=== PATIENT | female | born 1980 | race Two or more races ===

== ENCOUNTER 2017-05-26 18:15 | Observation (INO) | payer MEDICAID | END 2017-05-26 19:47 | disposition home or self-care (01) | DRG 563 | LOC: LDRP 18:15 | PROVIDERS: ADMIT Specialist; ATTEND Specialist | DX: O60.03 Preterm labor without delivery, third trimester (principal); Z3A.31 31 weeks gestation of pregnancy | CPT/HCPCS: 59025; 76815; 81002; G0378 ==

== ENCOUNTER 2017-05-28 16:10 | Observation (INO) | payer MEDICAID | END 2017-05-28 18:15 | disposition home or self-care (01) | DRG 563 | LOC: LDRP 16:10 | PROVIDERS: ADMIT Specialist; ATTEND Specialist | DX: O60.03 Preterm labor without delivery, third trimester (principal); Z3A.32 32 weeks gestation of pregnancy | CPT/HCPCS: 59025; 76818; 81002; G0378 ==

== ENCOUNTER 2017-06-12 01:04 | Observation (INO) | payer MEDICAID ==
[~2017-06-12] VITALS: Ht 165.1 cm; Wt 116.6 kg
[~2017-06-12 01:04] MED LIST: PREN-153 OR
[2017-06-12] MEDS ORDERED: TERBUTALINE SULFATE 1 MG/ML 1ML VIAL SC ONE (17:35)
[2017-06-12] MEDS ORDERED: LACTATED RINGER'S 1,000 ML IV ONE (17:45)
[2017-06-12] MEDS ORDERED: TERBUTALINE SULFATE 1 MG/ML 1ML VIAL SC SCH (18:00)
[2017-06-12 19:01] LABS: Basophils # (auto) 0 uL; Basophils % (auto) 0.4 % (0.0-2.0); CONDITION Y; Eosinophils # (auto) 0.1 uL; Eosinophils % (auto) 0.7 % (0.0-7.0); Hematocrit 40.5 % (36.0-46.0); Hemoglobin 13.8 g/dL (12.2-16.2); Lymphocytes # (auto) 2.7 uL; Lymphocytes % (auto) 27.5 % (10.0-50.0); Mean Corpuscular Hemoglobin 30.6 pg (28.0-32.0); Mean Corpuscular Hgb Conc. 34.1 g/dL (32.0-36.0); Mean Corpuscular Volume 89.7 fL (80.0-100.0); Mean Platelet Volume 11.7 fL (7.4-10.4); Monocytes # (auto) 0.7 uL; Monocytes % (auto) 7.4 % (0.0-12.0); Neutrophils # (auto) 6.3 uL; Platelet Count (auto) 206 10^3/uL (140-450); Red Cell Distribution Width 15.2 % (11.6-16.0); SUSPECT SEE PRINTOUT; White Blood Cell 9.8 10^3/uL (4.4-10.8)
[2017-06-12 19:09] LABS: Urine Bilirubin Negative (Negative); Urine Blood Negative /uL (Negative); Urine Color Yellow (Yellow); Urine Glucose Normal (Normal); Urine Ketone Negative (Negative); Urine Mucus FEW (None Seen); Urine Nitrite Negative (Negative); Urine RBC 1 /hpf (0 - 4); Urine Squamous Epithelial Cell FEW /hpf (<5); Urine Urobilinogen Normal (Negative)
[2017-06-12 19:14] LABS: INR 0.87 (0.9-1.15); Prothrombin Time 9.5 sec (9.37-12.3)
[2017-06-12 19:21] LABS: Albumin 2.7 g/dL (3.4-5.0); BUN/Creatinine Ratio 16.9; Bilirubin, Total 0.2 mg/dL (0.2-1.0); Calcium 9.1 mg/dL (8.5-10.1); Potassium 3.9 mmol/L (3.5-5.1); Total Protein 6.2 g/dL (6.4-8.2); Uric Acid 7.1 mg/dL (2.6-6.0)
== END 2017-06-12 20:13 | disposition home or self-care (01) | DRG 566 ==
LOC: LDRP 01:04
PROVIDERS: ADMIT Specialist; ATTEND Specialist
DX: O13.3 Gestational [pregnancy-induced] hypertension without significant proteinuria, third trimester (principal); O14.93 Unspecified pre-eclampsia, third trimester; Z3A.34 34 weeks gestation of pregnancy
CPT/HCPCS: 36415; 59025; 76818; 80053; 81001; 81002; 84550; 85025; 85362; 85379; 85610; 85730; 96360; 96372; G0378; J3105; 96361; 96366

== ENCOUNTER 2017-06-14 11:50 | Observation (INO) | payer MEDICAID ==
[~2017-06-14] VITALS: Ht 170.2 cm; Wt 112.0 kg
[2017-06-14] MEDS ORDERED: NIF10C PO (12:30)
[2017-06-14 12:56] LABS: Urine RBC None Seen /hpf (0 - 4)
[2017-06-14] MEDS ORDERED: BETAMETHASONE ACET (6MG/ML) 5ML VIAL ONE (13:05)
[2017-06-14] MEDS ORDERED: LABETALOL HCL 200 MG TAB ONE (13:16)
[2017-06-14 13:18] LABS: Urine Bilirubin Negative (Negative); Urine Blood Negative /uL (Negative); Urine Color Yellow (Yellow); Urine Glucose Normal (Normal); Urine Ketone Negative (Negative); Urine Nitrite Negative (Negative); Urine Squamous Epithelial Cell FEW /hpf (<5); Urine Urobilinogen Normal (Negative)
[2017-06-14] MEDS: LABETALOL HCL 200 MG TAB PO SCH ×2 (13:30→16:41)
[2017-06-14 13:32] LABS: Basophils # (auto) 0 uL; Basophils % (auto) 0.4 % (0.0-2.0); CONDITION Y; Eosinophils # (auto) 0 uL; Eosinophils % (auto) 0.4 % (0.0-7.0); Hematocrit 41.3 % (36.0-46.0); Hemoglobin 14.1 g/dL (12.2-16.2); Lymphocytes # (auto) 1.6 uL; Mean Corpuscular Hgb Conc. 34.2 g/dL (32.0-36.0); Mean Corpuscular Volume 90.6 fL (80.0-100.0); Mean Platelet Volume 11.6 fL (7.4-10.4); Monocytes # (auto) 0.9 uL; Monocytes % (auto) 7.8 % (0.0-12.0); Neutrophils # (auto) 8.9 uL; Neutrophils % (auto) 77.4 % (37.0-80.0); Platelet Count (auto) 195 10^3/uL (140-450); Red Cell Distribution Width 14.7 % (11.6-16.0); White Blood Cell 11.5 10^3/uL (4.4-10.8)
[2017-06-14 13:55] LABS: INR 0.87 (0.9-1.15); Partial Thromboplastin Time 27.9 sec (22.64-33.71); Prothrombin Time 9.5 sec (9.37-12.3)
[2017-06-14 13:56] LABS: Albumin 2.7 g/dL (3.4-5.0); BUN/Creatinine Ratio 14.3; Bilirubin, Total 0.3 mg/dL (0.2-1.0); Total Protein 6.6 g/dL (6.4-8.2); Uric Acid 7.3 mg/dL (2.6-6.0)
[2017-06-14] MEDS ORDERED: hydrALAZINE HCL 20 MG/ML VL IV ONE ×3 (14:30→19:00)
[2017-06-14] MEDS ORDERED: NIFEdipine 10 MG CAP ONE (18:04)
[2017-06-14] MEDS ORDERED: NIFEdipine 10 MG CAP PO ONE (18:15)
[2017-06-14] MEDS ORDERED: MAGNESIUM SULFATE 40MG/ML 1,000 ML IV ONE (19:04)
[2017-06-14] MEDS ORDERED: AMPICILLIN SOD 1 GM VL ONE (19:12)
[2017-06-15] MEDS ORDERED: BETAMETHASONE ACET (6MG/ML) 5ML VIAL IM SCH (13:00)
== END 2017-06-14 21:00 | disposition short-term general hospital (02) | DRG 566 ==
LOC: LDRP 11:50
PROVIDERS: ADMIT Obstetrics & Gynecology; ATTEND Obstetrics & Gynecology
DX: O24.419 Gestational diabetes mellitus in pregnancy, unspecified control (principal); O13.3 Gestational [pregnancy-induced] hypertension without significant proteinuria, third trimester; Z3A.34 34 weeks gestation of pregnancy
CPT/HCPCS: 36415; 51702; 59025; 76805; 76818; 80053; 80307; 81001; 81002; 82948; 82962; 83036; 83735; 84550; 85025; 85362; 85379; 85610; 85730; 96374; 96376; G0378; J0290; J0360; J0702; J3475; J7030; 96361; 96365; 96372; 96375